=== PATIENT | female | born 1960 | race Caucasian/White ===

== ENCOUNTER → 2018-03-11 | Outpatient (CLI) | payer OTHER ==
[~2018-03-11] MED LIST: ALBU8HFA2 INH; ALBU90OI61 INH; AZIT250 PO; BACL20; CARI350; CARI350 PO; CEPH500 PO; CLON.5; CLON.5 PO; CLON1; CYCL10; Catapres0.1 MG PO; DIAZ10 PO; DOCU100; FLUC100 PO; GUAI600T33 PO; HYDACE25S PR; HYDACE5 PO; HYDPAM50; IBUP600 PO; LORA1 PO; LOVA40 PO; MARIJUANA; METO50ER; METO50ER PO; NAPR550 PO; OMEP20ER PO; ONDA4ODT MM; OXYACE5T PO; PANT40 PO; PARO30; PRED1SU BOTHEYES; PROACE100 PO; Pepcid20 MG PO; Prednisone50 MG PO; RANI150 PO; RXLORA1 PO; RXONDA4ODT MM; SOMA350 MG PO; TOBR.3OPSO BOTHEYES; [UNRECOGNIZED DRUG - REMARK]
== END | disposition home or self-care (01) ==
LOC: LAB SHORT 12:58 → LAB 12:58
PROVIDERS: Family Medicine
DX: Z00.00 Encounter for general adult medical examination without abnormal findings (principal)
CPT/HCPCS: 87624; G0145

== ENCOUNTER 2018-04-05 06:07 | Day surgery (SDC) | payer OTHER ==
[~2018-04-05] VITALS: Ht 160 cm; Wt 60.8 kg
[~2018-04-05 06:07] MED LIST changes: +Carisoprodol350 MG PO
== END 2018-04-05 22:39 | disposition home or self-care (01) ==
LOC: ORSCMMR 06:07 → ORD 07:30 → ORSCMMR 22:39
PROVIDERS: Surgery
PROC: 06BY0ZC Excision of Hemorrhoidal Plexus, Open Approach (ICD-10-PCS; principal; 2018-04-05 07:30)
PROC: 0DJD8ZZ Inspection of Lower Intestinal Tract, Via Natural or Artificial Opening Endoscopic (ICD-10-PCS; principal; 2018-04-05 07:30)
DX: K64.1 Second degree hemorrhoids (principal); K64.9 Unspecified hemorrhoids; Z12.11 Encounter for screening for malignant neoplasm of colon; Z86.010 Personal history of colon polyps; I10 Essential (primary) hypertension; E78.5 Hyperlipidemia, unspecified; I25.10 Atherosclerotic heart disease of native coronary artery without angina pectoris; Z95.810 Presence of automatic (implantable) cardiac defibrillator; I45.81 Long QT syndrome; F41.8 Other specified anxiety disorders; Z79.899 Other long term (current) drug therapy
CPT/HCPCS: 46260; G0105; J1100; J2001; J2250; J2370; J2405; J3010; J7120

== ENCOUNTER → 2019-01-31 | Outpatient (CLI) | payer OTHER | END | disposition home or self-care (01) | LOC: LAB EV 17:08 → LAB SHORT 17:08 | DX: N39.0 Urinary tract infection, site not specified (principal) | CPT/HCPCS: 87077; 87086; 87186 ==

== ENCOUNTER 2019-04-15 16:09 | Emergency (ER) | payer OTHER ==
[~2019-04-15] VITALS: Ht 160 cm; Wt 65.8 kg
== END 2019-04-15 17:26 | disposition home or self-care (01) ==
LOC: ER 16:09
DX: S16.1XXA Strain of muscle, fascia and tendon at neck level, initial encounter (principal); V43.62XA Car passenger injured in collision with other type car in traffic accident, initial encounter; Z88.8 Allergy status to other drugs, medicaments and biological substances; Z88.2 Allergy status to sulfonamides; Z88.1 Allergy status to other antibiotic agents; Z91.013 Allergy to seafood; Z88.5 Allergy status to narcotic agent; Z91.010 Allergy to peanuts; Z79.899 Other long term (current) drug therapy; F41.9 Anxiety disorder, unspecified
CPT/HCPCS: 99283

== ENCOUNTER → 2023-10-05 | Outpatient (CLI) | payer OTHER ==
[~2023-10-05] MED LIST changes: +ALBU90OI INH; +DEEP SEA44 ML NS; +DIAZ5 PO; +PROBIOTIC250 MG PO
== END | disposition home or self-care (01) ==
LOC: LAB SHORT 15:44 → LAB 15:44
DX: R35.0 Frequency of micturition (principal)
CPT/HCPCS: 87086

== ENCOUNTER 2025-07-21 17:57 | Observation (INO) | payer OTHER ==
[~2025-07-21] VITALS: Ht 162.6 cm; Wt 68.0 kg
[2025-07-21 18:46] VITALS: BP 180/97
[2025-07-21] MEDS ORDERED: LORazepam 2 MG/ML 1ML Injection ONE (20:08)
[2025-07-21] MEDS ORDERED: LORazepam 2 MG/ML 1ML Injection IM ONE (20:10)
[2025-07-21 20:32] LABS: BASOPHILS ABSOLUTE AUTO 0.07 K/mm3 (0.00-0.23); BASOPHILS PERCENT AUTO 0 % (0-2); EOSINOPHILS ABSOLUTE AUTO 0.01 K/mm3 (0.00-0.68); EOSINOPHILS PERCENT AUTO 0 % (0-6); Hematocrit 47.9 % (33.0-51.0); Hemoglobin 16.2 g/dL (11.5-16.0); IMMATURE GRAN ABSOLUTE AUTO 0.08 K/mm3 (0.00-0.10); IMMATURE GRAN PERCENT AUTO 1 % (0-1); LYMPHOCYTES ABSOLUTE AUTO 2.75 K/mm3 (0.84-5.20); LYMPHOCYTES PERCENT AUTO 17 % (21-46); MONOCYTES ABSOLUTE AUTO 0.99 K/mm3 (0.16-1.47); MONOCYTES PERCENT AUTO 6 % (4-13); Mean Corpuscular HGB Conc 33.8 g/dL (31.5-36.5); Mean Corpuscular Volume 90 fL (80-100); NEUTROPHILS ABSOLUTE AUTO 12.14 K/mm3 (1.96-9.15); NEUTROPHILS PERCENT AUTO 76 % (41-73); NRBC ABSOLUTE 0.00 K/mm3 (0.00-0.02); NRBC Auto 0.0 /100 WBC (0.0-0.2); Platelet Count 298 K/mm3 (150-400); RDW Coefficient Variation 11.6 % (11.7-14.2); RDW Standard Deviation 38.1 fL (35.1-46.3)
[2025-07-21 20:33] LABS: pH Blood Venous 7.23 (7.34-7.37)
[2025-07-21 20:44] LABS: Source, Urine Clean Catch
[2025-07-21 20:53] LABS: Ethanol (Alcohol), Blood, Med <3 mg/dL; Salicylate 4.3 mg/dL (2.8-20.0)
[2025-07-21 20:56] LABS: Acetaminophen, Random <2.0 ug/mL (10.0-30.0); Alanine Aminotransfer (ALT/SGP 26 U/L (12-78); Albumin, Blood 4.7 g/dL (3.4-5.0); Albumin/Globulin Ratio 1.3 (0.8-1.8); Anion Gap 15 mmol/L (3-11); Aspartate Aminotrans (AST/SGOT 20 U/L (12-37); Bilirubin, Total 0.4 mg/dL (0.1-1.0); Blood Urea Nitrogen 13 mg/dL (8-24); CO2, Blood 23 mmol/L (21-32); Calcium, Blood 10.0 mg/dL (8.5-10.1); Chloride, Blood 105 mmol/L (98-108); Creatinine, Blood 0.94 mg/dL (0.40-1.00); Globulin, Blood 3.6 g/dL (2.2-4.0); Glucose, Blood 158 mg/dL (70-99); Potassium, Blood 3.7 mmol/L (3.5-5.5); Sodium, Blood 139 mmol/L (136-145); Total Protein, Blood 8.3 g/dL (6.4-8.2)
[2025-07-21 21:04] LABS: Bilirubin, Urine Neg (Neg); Color, Urine Yellow (P-Yellow); Glucose Qualitative, Urine Neg (Neg); Ketones, Urine Neg (Neg); Leukocyte Esterase, Urine Neg (Neg); Protein, Urine 1+ (Neg); Specific Gravity, Urine 1.005 (1.003-1.022); Urobilinogen, Urine NORM (Normal)
[2025-07-21 21:22] LABS: U Amphetamine Screen DETECTED; U Barbiturate Screen Not Detected; U Benzodiazapine Screen DETECTED; U Buprenorphine Screen Not Detected; U Cannabinoids Screen DETECTED; U Cocaine Screen Not Detected; U Methadone Screen Not Detected; U Methamphetamine Screen DETECTED; U Opiates Screen Not Detected; U Oxycodone Screen Not Detected; U Phencyclidine Screen Not Detected
[2025-07-21] MEDS ORDERED: Midazolam HCl 1MG / ML 2ML Vial IV ONE (21:40)
== END 2025-07-22 23:25 | disposition home or self-care (01) ==
LOC: ER 17:57 → EOR 17:58
PROVIDERS: Student in an Organized Health Care Education/Training Program; ADMIT Student in an Organized Health Care Education/Training Program
DX: F15.90 Other stimulant use, unspecified, uncomplicated (principal); Z88.5 Allergy status to narcotic agent; Z91.010 Allergy to peanuts; Z91.013 Allergy to seafood; Z88.2 Allergy status to sulfonamides; Z88.1 Allergy status to other antibiotic agents; Z79.899 Other long term (current) drug therapy
CPT/HCPCS: 80053; 80320; 82803; 85025; 93005; 93010; 96372-59; 96374; 99285-25; A9270; G0378; G0480; J2060; J2250